=== PATIENT | male | born 1985 | race Caucasian/White ===

== ENCOUNTER 2018-12-28 08:44 | Emergency (ER) | payer OTHER ==
[~2018-12-28] VITALS: Ht 182.9 cm; Wt 83.9 kg
[2018-12-28] MEDS ORDERED: SYNTHROID175 MCG (08:56)
== END 2018-12-28 11:21 | disposition home or self-care (01) ==
LOC: ER 08:44
DX: S62.616A Displaced fracture of proximal phalanx of right little finger, initial encounter for closed fracture (principal); W21.09XA Struck by other hit or thrown ball, initial encounter; Y93.89 Activity, other specified; Y92.89 Other specified places as the place of occurrence of the external cause; Y99.8 Other external cause status

== ENCOUNTER 2019-01-12 10:22 | Outpatient (CLI) | payer OTHER ==
[~2019-01-12 10:22] MED LIST: SYNTHROID175 MCG
== END 2019-01-12 10:26 | disposition home or self-care (01) ==
LOC: RAD 10:22
DX: S62.606D Fracture of unspecified phalanx of right little finger, subsequent encounter for fracture with routine healing (principal)